=== PATIENT | female | born 1975 | race Caucasian/White ===

== ENCOUNTER → 2021-05-13 | Outpatient (CLI) | payer OTHER ==
[~2021-05-13] MED LIST: AUGMENTIN 875-1 EACH PO; BENTYL 20MG TAB20 MG PO; IPRAT-ALBUT 0.5-3 ML NEB; IRON325 M1 PO; K-DUR TAB 10 M10 MEQ PO; PAXIL20 MG PO; PREDNISONE 20 M20 MG PO; PROTONIX 40 MG40 M1 PO; ZANTAC 150 MG150 MG PO; ZOFRAN ODT4 MG PO
== END ==
LOC: RAD 17:34
DX: R06.02 Shortness of breath (principal); R91.8 Other nonspecific abnormal finding of lung field; I51.7 Cardiomegaly
CPT/HCPCS: 71046